=== PATIENT | female | born 1980 | race Caucasian/White ===

== ENCOUNTER 2020-04-09 16:19 | Emergency (ER) | payer OTHER, SELFPAY ==
[2020-04-09 16:31] VITALS: BP 130/82; PULSE 90; RESP 16; TEMP 37.3; O2SAT 99
--- NOTE | 2020-04-09 16:39 | ED.DENTAL ---
HPI - Dental/Oral General Chief complaint: Dental/Oral Stated complaint: dental Time Seen by Provider: 04/09/20 16:30 Source: patient Mode of arrival: ambulatory Limitations: no limitations History of Present Illness HPI Narrative: Kelsey Jones is a 39 yo female with no PMH who comes to express care with swelling and abscess of tooth 27,28,29- R sided facial swelling and pain that started 3 days ago and has gotten continually worse. Hard to eat and drink, can't open mouth fully Related Data Allergies Allergy/AdvReac Type Severity Reaction Status Date / Time No Known Allergies Allergy Verified 04/09/20 16:24 Review of Systems Review of Systems: Narrative: CONSTITUTIONAL: Denies fever, chills, sweats. EYES: Denies visual changes, redness, discharge. ENT: Denies rhinorrhea, congestion, sore throat, otalgia. Right-sided facial swelling from dental abscesses (multiple teeth) CARDIOVASCULAR: Denies chest pain, palpitations, edema. RESPIRATORY: Denies dyspnea, wheezing, cough GASTROINTESTINAL: Denies abdominal pain, nausea, vomiting, diarrhea. GENITOURINARY: Denies dysuria, hematuria, abnormal discharge SKIN: Denies rash or itching. NEUROLOGIC: Denies numbness, or focal weakness. PSYCHIATRIC: Denies anxiety or depression. [facility] Family History Family History Other No active medical problems Social History Social History (Updated 04/09/20 @ 16:47 by Anuradha Nunes CNP) Smoking status: Current some day smoker Alcohol intake: current Comments At time of signature, I agree with nursing past medical, surgical, social and family history. There is no relevant family history pertinent to the presenting complaint. Exam Narrative: Exam Narrative: GENERAL: This is a well-nourished, well-developed patient, in left distress. HEAD: normocephalic, atraumatic. EYES: Sclera clear/white. Vision is grossly intact. EARS: External ears normal, auditory canals clear and without drainage, TMs normal without perforation. Hearing grossly intact. NOSE: External nose normal without nasal discharge, nares without redness, no rhinorrhea. THROAT: Mucous membranes moist,-mouth: Multiple broken off teeth blackened teeth very poor dentition, right-sided mouth swelling with obvious abscesses to lower right jaw, teeth 27-29 involved; only open mouth partially NECK: Neck supple, CARDIOVASCULAR: Regular rate and rhythm without murmurs, gallops, or rubs. RESPIRATORY: Clear to auscultation. Breath sounds equal bilaterally. No wheezes, rales, or rhonchi. GASTROINTESTINAL: Abdomen soft, SKIN: warm, intact with no suspicious lesions or rash, good texture and turgor. NEURO: awake, alert, and oriented to person, place and time. There were no obvious focal neurologic abnormalities. Steady gait EXTREMITIES: Normal range of motion. BACK: Nontender without deformity Course Course Emergency Course: Started on penicillin, pain medication Toradol given in office Referral made to see you dental school-patient on [facility] needs a dental surgeon Vital Signs Vital signs: Vital Signs Temperature 99.1 F 04/09/20 16:31 Pulse Rate 90 04/09/20 16:31 Respiratory Rate 16 04/09/20 16:31 Blood Pressure 130/82 04/09/20 16:31 Pulse Oximetry 99 04/09/20 16:31 Temperature 99.1 F 04/09/20 16:31 Pulse Rate 90 04/09/20 16:31 Respiratory Rate 16 04/09/20 16:31 Blood Pressure 130/82 04/09/20 16:31 Pulse Oximetry 99 04/09/20 16:31 MDM - Dental/Oral Differential Diagnosis Differential diagnosis: Likely dental caries, dental abscess, fracture of tooth and other Discharge Plan Discharge Clinical Impression: Dental abscess Patient Disposition: Home, Self-Care Condition: Stable Instructions: Dental Abscess (ED) Prescriptions: New penicillin V potassium 500 mg tablet 500 mg PO Q8H 10 Days Qty: 30 RF: 0 ibuprofen 600 mg tablet 600 mg PO TID PRN (
[2020-04-09] MEDS: KETOROLAC (*BKC) 60 MG/2 ML VIAL IM (16:51)
== END 2020-04-09 17:22 | disposition home or self-care (01) ==
PROVIDERS: Emergency Provider Nurse Practitioner; PCP Family Medicine
DX: K04.7 Periapical abscess without sinus (principal); F17.210 Nicotine dependence, cigarettes, uncomplicated
CPT/HCPCS: 96372; 99213; G0463; J1885

== ENCOUNTER 2020-05-14 16:58 | Emergency (ER) | payer OTHER, SELFPAY ==
[2020-05-14 17:12] VITALS: BP 145/80; PULSE 81; RESP 18; TEMP 36.7; O2SAT 99
--- NOTE | 2020-05-14 17:20 | ED.DENTAL ---
HPI - Dental/Oral General Chief complaint: Dental/Oral Stated complaint: swollen face Time Seen by Provider: 05/14/20 17:20 Source: patient and RN notes reviewed Mode of arrival: ambulatory Limitations: no limitations History of Present Illness HPI Narrative: This is a 39 years old female presented office for evaluation of dental pain/abscess for three days. She noticed swelling last night with difficulty opening her mouth. She has tried Tylenol and ibuprofen for pain. She is also in the process of getting her teeth removed completely. Related Data Allergies Allergy/AdvReac Type Severity Reaction Status Date / Time No Known Allergies Allergy Verified 04/09/20 16:24 Review of Systems Review of Systems: Narrative: CONSTITUTIONAL: Denies fever ENT: Denies sore throat. Reports dental pain with facial swelling CARDIOVASCULAR: Denies chest pain RESPIRATORY: Denies dyspnea GASTROINTESTINAL: Denies abdominal pain, nausea, vomiting, diarrhea. SKIN: Denies rash MUSCULOSKELETAL: Denies joints pain NEUROLOGIC: Denies lightheaded All systems reviewed & are unremarkable except as noted in HPI and below PMFSH Surgical History Surgical History (Updated 05/14/20 @ 17:35 by MICHAEL Edmondson) Hx of nephrostomy Family History Family History Other No active medical problems Social History Social History Smoking status: Current some day smoker Alcohol intake: current Comments At time of signature, I agree with nursing past medical, surgical, social and family history. There is no relevant family history pertinent to the presenting complaint. Exam Narrative: Exam Narrative: GENERAL: This is a well-developed patient, a lot older than state age, in no apparent distress. EYES: Sclera and conjunctivae normal ENT: External ears normal. Nose and lips normal. Airway patent.Her teeth are very carious and the lower teeth in question are very carious and the gum is swollen and tender around it. There is left side facial swelling without cervical or submandibular lymphadenopathy. The patient appears uncomfortable and in pain. CARDIOVASCULAR: Regular rate and rhythm without murmurs, gallops, or rubs. RESPIRATORY: Clear to auscultation. Breath sounds equal bilaterally. No wheezes, rales, or rhonchi. GASTROINTESTINAL: Abdomen soft, non-tender, nondistended. Bowel sounds are active. No guarding. SKIN: warm, intact with no suspicious lesions or rash, good texture and turgor. NEURO: awake, alert, and oriented to person, place and time. There were no obvious focal neurologic abnormalities. Course Vital Signs Vital signs: Vital Signs Temperature 98.0 F 05/14/20 17:12 Pulse Rate 81 05/14/20 17:12 Respiratory Rate 18 05/14/20 17:12 Blood Pressure 145/80 H 05/14/20 17:12 Pulse Oximetry 99 05/14/20 17:12 Temperature 98.0 F 05/14/20 17:12 Pulse Rate 81 05/14/20 17:12 Respiratory Rate 18 05/14/20 17:12 Blood Pressure 145/80 H 05/14/20 17:12 Pulse Oximetry 99 05/14/20 17:12 MDM - Dental/Oral MDM Narrative Medical decision making narrative: Discharge instructions reviewed with patient, as well as provided in writing per nursing staff. The instructions also include specific and strict return/GO TO THE ER as well as f/u information. All questions have been answered, and the patient deny any further questions with discharge and discharge plan. Differential Diagnosis Differential diagnosis: Likely gingival abscess, dental caries, toothache, dental abscess, fracture of tooth and aphthous ulcer Critical Care Time Critical Care Time Critical Care Time: No Discharge Plan Discharge Patient Disposition: Home, Self-Care Condition: Stable Instructions: Antibiotic Form, Toothache (ED) Additional Instructions: Take antibiotic until it's gone. Brushing teeth at least twice daily with
== END 2020-05-14 17:34 | disposition home or self-care (01) ==
PROVIDERS: Emergency Provider Nurse Practitioner; PCP Family Medicine
DX: K02.9 Dental caries, unspecified (principal); F17.200 Nicotine dependence, unspecified, uncomplicated
CPT/HCPCS: 99213; G0463

== ENCOUNTER 2022-04-12 12:35 | Emergency (ER) | payer OTHER, SELFPAY ==
[2022-04-12 12:43] VITALS: BP 131/81; PULSE 106; RESP 16; TEMP 37.2; O2SAT 99
--- NOTE | 2022-04-12 12:56 | ED.URI ---
HPI - URI/Sore Throat General Chief Complaint: Upper Respiratory Infection Stated Complaint: cough /cp/sore throat Time Seen by Provider: 04/12/22 12:57 Source: patient, RN notes reviewed and old records reviewed Mode of arrival: ambulatory Limitations: no limitations History of Present Illness HPI Narrative: 41-year-old female presents to the [facility] with cough, sore throat, fatigue for 2 weeks. Family members diagnosed with bronchitis. Denies fevers. Denies chest pain except when coughing and deep breathing. Patient is currently a smoker Related Data Allergies Allergy/AdvReac Type Severity Reaction Status Date / Time No Known Allergies Allergy Verified 04/09/20 16:24 Review of Systems Review of Systems: All systems reviewed & are unremarkable except as noted in HPI and below Constitutional: Constitutional: Reports no additional constitutional complaints, Denies chills, Denies fever(s) and Denies headache(s) Eyes: Eyes: Reports no additional eye complaints ENT: Reports as per HPI, Denies vertigo, Denies dizziness, Denies headache(s), Reports nasal congestion and Denies sore throat Cardiovascular: Cardiovascular: Reports no additional cardiovascular complaints, Denies chest pain, Denies syncope, Denies rapid heart rate and Denies dyspnea Respiratory: Respiratory: Reports as per HPI, Reports chest congestion, Reports cough, Reports dyspnea and Denies wheezing Gastrointestinal: Gastrointestinal: Reports no additional gastrointestinal complaints, Denies abdominal pain, Denies diarrhea, Denies nausea and Denies vomiting Musculoskeletal: Musculoskeletal: Reports no additional musculoskeletal complaints and Denies numbness Integumentary/Breasts: Skin/Breast: Reports system reviewed and no additional complaints, except as docu Neurologic: Reports system reviewed and no additional complaints, except as documented, Denies vertigo, Denies dizziness, Denies syncope, Denies headache(s), Denies focal weakness and Denies numbness Psychiatric: Psychiatric: Reports no additional psychiatric complaints Allergic/Immunologic: Allergic/Immunologic: Reports no additional allergic/immunologic complaints and Denies wheezing PMFSH Surgical History Surgical History Hx of nephrostomy Family History Family History Other No active medical problems Social History Social History Smoking status: Current some day smoker Alcohol intake: current Comments At the time of my signature, I reviewed and agree with the nursing past medical, surgical, social, and family history. There is no relevant family history pertinent to the patient complaint. Exam Const: General: cooperative, no acute distress, well developed, alert and ill appearing acutely (mild) Nutritional Appearance: well nourished Orientation/consciousness: patient oriented x3 Limitations: no limitations HENMT: Head: normal to inspection Ears: external ears normal, TM's normal bilaterally and EAC's normal General nose exam: Normal external nose present Mouth: Yes moist mucous membranes Eyes: Conjunctivae: conjunctivae normal Pupils: Equal, round and reactive pupils present Neck: Neck: normal visual inspection, no lymphadenopathy and no meningeal signs Chest: Chest palpation & inspection: normal inspection of the chest Resp: Effort & Inspection: normal respiratory effort and no use of accessory muscles Auscultation: clear to auscultation bilaterally, no crackles, no rales, no rhonchi and no wheezes Cardio: Rate: regular rate Rhythm: regular rhythm : General: Yes no CVA tenderness Back/Spine/Pelvis: Back: no CVA tenderness Skin: General skin exam: normal color Rashes: no rashes Wounds: no wounds Neuro: General: patient oriented x3, moves all extremities, no meningeal signs and no focal motor deficit
== END 2022-04-12 13:09 | disposition home or self-care (01) ==
PROVIDERS: Emergency Provider Nurse Practitioner
DX: J40 Bronchitis, not specified as acute or chronic (principal); F17.200 Nicotine dependence, unspecified, uncomplicated
CPT/HCPCS: 99213; G0463

== ENCOUNTER 2023-08-15 11:19 | Emergency (ER) | payer OTHER, SELFPAY ==
[2023-08-15 11:36] VITALS: BP 122/75; PULSE 104; RESP 16; TEMP 36.7; O2SAT 98
--- NOTE | 2023-08-15 12:25 | ED.EYEPROB ---
HPI - Eye Problem General Chief complaint: Eye Problems Stated complaint: Eyes Irritation Time Seen by Provider: 08/15/23 12:27 Source: patient, RN notes reviewed and old records reviewed Mode of arrival: ambulatory Limitations: no limitations History of Present Illness HPI Narrative: 43-year-old female presents to the [facility] with left eye irritation that started on Monday. Patient normally wears contacts states that she feels like she got some dust in her eye. States that she tried calling her eye doctor, is not able to get in until the end of July. Eyelid is swollen, crusting noted. Onset (ago): day(s) (3) Related Data Allergies Allergy/AdvReac Type Severity Reaction Status Date / Time No Known Allergies Allergy Verified 08/15/23 11:21 Review of Systems Review of Systems: All systems reviewed & are unremarkable except as noted in HPI and below Constitutional: Constitutional: Reports no additional constitutional complaints Eyes: Eyes: Reports as per HPI, Reports eye discharge, Reports irritation, Reports itchy eyes and Reports eye pain ENT: Reports system reviewed and no additional complaints, except as documented Cardiovascular: Cardiovascular: Reports no additional cardiovascular complaints, Denies chest pain and Denies dyspnea Respiratory: Respiratory: Reports no additional respiratory complaints, Denies chest congestion, Denies cough and Denies dyspnea Gastrointestinal: Gastrointestinal: Reports no additional gastrointestinal complaints, Denies abdominal pain, Denies nausea and Denies vomiting Musculoskeletal: Musculoskeletal: Reports no additional musculoskeletal complaints Integumentary/Breasts: Skin/Breast: Reports system reviewed and no additional complaints, except as docu Neurologic: Reports system reviewed and no additional complaints, except as documented Psychiatric: Psychiatric: Reports no additional psychiatric complaints Allergic/Immunologic: Allergic/Immunologic: Reports no additional allergic/immunologic complaints [facility] Surgical History Surgical History Hx of nephrostomy Family History Family History Other No active medical problems Social History Social History Smoking status: Current some day smoker Alcohol intake: current Comments At the time of my signature, I reviewed and agree with the nursing past medical, surgical, social, and family history. There is no relevant family history pertinent to the patient complaint. Exam Const: General: cooperative, healthy appearing, comfortable, no acute distress, well developed, alert and well nourished Nutritional Appearance: well nourished Orientation/consciousness: patient oriented x3 Limitations: no limitations HENMT: Head: normal to inspection Ears: hearing grossly normal bilaterally and external ears normal Face/Nose/Sinus: Normal external nose present, Normal nares present, Normal nasal mucous membranes and turbinates present, normal facial exam and face symmetric Face and sinus: normal facial exam and face symmetric Mouth: Yes Normal oral and palatal mucosa present, Yes lip normal and Yes moist mucous membranes Throat: posterior oropharynx normal and uvula midline Eyes: Alignment and Position: alignment normal Periorbital: periorbital findings normal Eyelids: eyelid abnormality left upper eyelid swelling; without erythema Conjunctivae: conjunctival abnormality left conjunctival injection circumcorneal and discharge Sclera: sclerae normal Cornea: corneas abnormal on the left fluorescein used and abrasion linear (12:00 in iris not pupil) and fluorescein used Pupils: Equal, round and reactive pupils present EOM: EOMs intact bilaterally Neck: Neck: normal visual inspection, full ROM, no lymphadenopathy and no meningeal signs Chest: Chest palpation & inspect
== END 2023-08-15 12:53 | disposition home or self-care (01) ==
PROVIDERS: Emergency Provider Nurse Practitioner; PCP Family Medicine
DX: S05.02XA Injury of conjunctiva and corneal abrasion without foreign body, left eye, initial encounter (principal); X58.XXXA Exposure to other specified factors, initial encounter; H10.33 Unspecified acute conjunctivitis, bilateral; F17.200 Nicotine dependence, unspecified, uncomplicated
CPT/HCPCS: 99213; A9270; G0463